=== PATIENT | male | born 1955 | race Caucasian/White ===

== ENCOUNTER 2022-10-17 18:19 | Emergency (ER) | payer MEDICARE, OTHER ==
[~2022-10-17] VITALS: Ht 182.9 cm; Wt 92.3 kg
[2022-10-17] MEDS ORDERED: CARV3 PO (19:42)
[2022-10-17] MEDS ORDERED: FINA-27 PO (19:42)
[2022-10-17] MEDS ORDERED: LEVE500T20 PO (19:42)
[2022-10-17] MEDS ORDERED: NITR0.4T52 SL (19:42)
[2022-10-17] MEDS ORDERED: ATOR10TA PO (19:42)
[2022-10-17] MEDS ORDERED: ASPI81TA39 PO (19:42)
[2022-10-17] MEDS ORDERED: LOSA-382 PO (19:42)
[2022-10-17] MEDS ORDERED: MINERAL OIL 133 ML ENEMA PR ONE ×2 (19:45→22:00)
[2022-10-17 19:58] VITALS: TEMP 98
[2022-10-17 21:00] VITALS: BP 135/71; PULSE 62; RESP 16
[2022-10-17 21:02] LABS: BASOPHILS % (AUTO) 0.5 % (0.0-2.0); EOSINOPHILS % (AUTO) 1.6 % (1.0-6.0); HEMATOCRIT 38.2 % (41-53); HEMOGLOBIN 12.6 g/dL (13.5-17.5); LYMPHOCYTES # (AUTO) 1.5 K/uL (1.0-4.8); LYMPHOCYTES % (AUTO) 17.9 % (22.0-44.0); MEAN CORPUSCULAR HGB CONC 32.9 G/dL (31.0-37.0); MEAN CORPUSCULAR VOLUME 82 fL (80-100); MONOCYTES # (AUTO) 0.7 K/uL (0.1-1.0); MONOCYTES % (AUTO) 7.9 % (2.0-9.0); NEUTROPHILS % (AUTO) 72.1 % (40.0-70.0); PLATELET COUNT (AUTO) 261 K/uL (150-450); RED BLOOD CELL COUNT(AUTO) 4.66 MIL/uL (4.50-5.90); RED CELL DISTRIBUTION WIDTH 15.9 % (11.5-14.5)
[2022-10-17 21:09] LABS: CALCIUM, TOTAL 9.2 mg/dL (8.8-10.5); CREATININE 1.37 mg/dL (0.60-1.30); POTASSIUM 4.2 mmol/L (3.5-5.1)
[2022-10-17 21:15] LABS: ALBUMIN 3.8 g/dL (3.4-5.0); BILIRUBIN,TOTAL 0.3 mg/dL (0.1-1.0); TOTAL PROTEIN, SERUM 9.2 g/dL (6.4-8.2)
[2022-10-17] MEDS ORDERED: MINE133E26 PR ×2 (21:46→22:07)
[2022-10-17] MEDS ORDERED: MAGN296S94 PO ×2 (21:46→22:07)
== END 2022-10-17 22:55 | disposition home or self-care (01) ==
LOC: EMS 18:20
DX: R10.32 Left lower quadrant pain (principal); R10.31 Right lower quadrant pain; K59.00 Constipation, unspecified; I10 Essential (primary) hypertension; Z87.891 Personal history of nicotine dependence
CPT/HCPCS: 74176; 80053; 83690; 85025; 99285